=== PATIENT | female | born 1935 | race Two or more races ===

== ENCOUNTER 2018-09-24 19:15 | Emergency (ER) | payer OTHER ==
[~2018-09-24] VITALS: Ht 160 cm; Wt 72.6 kg
[~2018-09-24 19:15] MED LIST: ACET-929 PO; ALUMSUS PO; B-CO-5 OR; CALC667C PO; CEPH250C2 PO; LOPE2TAB73 PO; MISCTAB85 OR; OMEP20CA74 PO; SITA100T7 PO
[2018-09-24] MEDS ORDERED: diphenhdrAMINE HCL 50 MG/1 ML VL ONE (20:44)
[2018-09-24] MEDS ORDERED: diphenhdrAMINE HCL 50 MG/1 ML VL IV ONE (21:00)
[2018-09-24 21:52] LABS: Eosinophils # (auto) 0.1 uL
[2018-09-24 21:54] LABS: Basophils # (auto) 0 uL; Basophils % (auto) 0.7 % (0.0-2.0); Hematocrit 42.7 % (36.0-46.0); Lymphocytes # (auto) 1.1 uL; Lymphocytes % (auto) 19.7 % (10.0-50.0); Mean Corpuscular Hemoglobin 31.2 pg (28.0-32.0); Mean Corpuscular Hgb Conc. 32.8 g/dL (32.0-36.0); Monocytes # (auto) 0.5 uL; Neutrophils # (auto) 3.8 uL; Neutrophils % (auto) 68.6 % (37.0-80.0); Nucleated Red Blood Cells % 0.2 %; Platelet Count (auto) 59 10^3/uL (140-450); Red Blood Cells 4.49 10^6/uL (4.0-5.20); Red Cell Distribution Width 16.7 % (11.8-14.3); White Blood Cell 5.6 10^3/uL (4.4-10.8)
[2018-09-24 22:45] LABS: Albumin 3.2 g/dL (3.4-5.0); Calcium 9.6 mg/dL (8.5-10.1); Magnesium 3.1 mg/dL (1.6-2.6); Potassium 4.9 mmol/L (3.5-5.1)
[2018-09-24 22:52] LABS: BUN/Creatinine Ratio 7.2; Total Protein 7.3 g/dL (6.4-8.2)
[2018-09-24 23:53] LABS: INR 1.05 (0.9-1.15); Partial Thromboplastin Time 28.2 sec (23.78-33.04); Prothrombin Time 11.2 sec (9.27-12.13)
[2018-09-25] MEDS ORDERED: LORazepam 0.5 MG TAB PO ONE (00:15)
[2018-09-25 00:44] VITALS: BP 123/66
== END 2018-09-25 01:17 | disposition home or self-care (01) ==
LOC: ER 19:20 → MERGE 19:20 → ER 09-25 01:17
DX: N18.6 End stage renal disease (principal); K85.90 Acute pancreatitis without necrosis or infection, unspecified; F41.9 Anxiety disorder, unspecified; Z99.2 Dependence on renal dialysis
CPT/HCPCS: 36415; 70450; 71045; 80053; 82150; 83690; 83735; 83880; 84484; 85025; 85379; 85610; 85730; 93005; 94761; 96374; 99284; J1200

== ENCOUNTER 2019-05-14 18:35 | Emergency (ER) | payer SELFPAY ==
[~2019-05-14] VITALS: Ht 162.6 cm; Wt 72.6 kg
[2019-05-14 20:01] LABS: Basophils # (auto) 0.1 uL; Basophils % (auto) 1.2 % (0.0-2.0); Eosinophils # (auto) 0.1 uL; Eosinophils % (auto) 2.2 % (0.0-7.0); Hematocrit 42.5 % (36.0-46.0); Lymphocytes # (auto) 0.8 uL; Lymphocytes % (auto) 15.2 % (10.0-50.0); Mean Corpuscular Hemoglobin 31.9 pg (28.0-32.0); Mean Corpuscular Volume 96.7 fL (80.0-100.0); Monocytes # (auto) 0.6 uL; Monocytes % (auto) 10.4 % (0.0-12.0); Neutrophils # (auto) 3.9 uL; Nucleated Red Blood Cells % 0.1 %; Platelet Count (auto) 134 10^3/uL (140-450); Red Cell Distribution Width 14.6 % (11.8-14.3); White Blood Cell 5.5 10^3/uL (4.4-10.8)
[2019-05-14 20:17] LABS: Albumin 3.4 g/dL (3.4-5.0); BUN/Creatinine Ratio 6.6; Calcium 9.6 mg/dL (8.5-10.1); Potassium 4.1 mmol/L (3.5-5.1)
[2019-05-14 20:22] LABS: Bilirubin, Total 0.8 mg/dL (0.2-1.0); Total Protein 7.7 g/dL (6.4-8.2)
[2019-05-14] MEDS ORDERED: SODIUM CHLORIDE 0.9% 500 ML IVB ONE (20:35)
[2019-05-14 21:25] LABS: INR 1.06 (0.9-1.15); Partial Thromboplastin Time 29.1 sec (23.64-32.05)
[2019-05-14 22:56] VITALS: BP 117/61
== END 2019-05-14 23:00 | disposition home or self-care (01) ==
LOC: EDBD 18:35 → ER 18:42
DX: D69.6 Thrombocytopenia, unspecified (principal); I13.2 Hypertensive heart and chronic kidney disease with heart failure and with stage 5 chronic kidney disease, or end stage renal disease; E11.22 Type 2 diabetes mellitus with diabetic chronic kidney disease; N18.6 End stage renal disease; I50.9 Heart failure, unspecified; E78.5 Hyperlipidemia, unspecified; R55 Syncope and collapse; Z98.61 Coronary angioplasty status
CPT/HCPCS: 36415; 70450; 71045; 80053; 83735; 84484; 85025; 85610; 85730; 93005; 94761; 96360; 99284; J7040

== ENCOUNTER 2019-08-15 13:35 | Emergency (ER) | payer OTHER ==
[~2019-08-15] VITALS: Ht 160 cm; Wt 54.4 kg
[2019-08-15 15:04] VITALS: BP 128/58
== END 2019-08-15 15:21 | disposition home or self-care (01) ==
LOC: EDBD 13:35 → ER 13:38
DX: T82.530A Leakage of surgically created arteriovenous fistula, initial encounter (principal); S41.112A Laceration without foreign body of left upper arm, initial encounter; E11.22 Type 2 diabetes mellitus with diabetic chronic kidney disease; I13.2 Hypertensive heart and chronic kidney disease with heart failure and with stage 5 chronic kidney disease, or end stage renal disease; I50.89 Other heart failure; N18.6 End stage renal disease; Z98.61 Coronary angioplasty status; Z99.2 Dependence on renal dialysis; X58.XXXA Exposure to other specified factors, initial encounter; Y93.89 Activity, other specified; Y92.89 Other specified places as the place of occurrence of the external cause; Y99.8 Other external cause status
CPT/HCPCS: 12001

== ENCOUNTER 2019-09-17 00:38 | Emergency (ER) | payer OTHER ==
[~2019-09-17] VITALS: Ht 157.5 cm; Wt 61.2 kg
[2019-09-17] MEDS ORDERED: HYDROcodone-ACET 7.5/325MG TAB PO ONE (01:45)
[2019-09-17] MEDS ORDERED: IPRATROPIUM BROM 0.5 MG/2.5ML INH SOL NEB ONE (02:30)
[2019-09-17] MEDS ORDERED: ALBUTEROL SULF 2.5 MG/0.5ML(0.5%) NEB SOLN NEB ONE (02:30)
[2019-09-17 03:40] VITALS: BP 119/59
== END 2019-09-17 04:02 | disposition home or self-care (01) ==
LOC: EDBD 00:38 → ER 00:38
DX: S32.009A Unspecified fracture of unspecified lumbar vertebra, initial encounter for closed fracture (principal); S22.32XA Fracture of one rib, left side, initial encounter for closed fracture; I13.2 Hypertensive heart and chronic kidney disease with heart failure and with stage 5 chronic kidney disease, or end stage renal disease; E11.22 Type 2 diabetes mellitus with diabetic chronic kidney disease; N18.6 End stage renal disease; I50.9 Heart failure, unspecified; Z98.61 Coronary angioplasty status; Z79.899 Other long term (current) drug therapy; X58.XXXA Exposure to other specified factors, initial encounter; Y93.89 Activity, other specified; Y99.8 Other external cause status; Y92.89 Other specified places as the place of occurrence of the external cause
CPT/HCPCS: 74176